=== PATIENT | male | born 1940 | race Caucasian/White ===

== ENCOUNTER 2020-08-03 16:34 | Emergency (ER) | payer MEDICARE, BC ==
--- NOTE | 2020-08-03 17:23 | RAD ---
XR Finger(s) Lt Min 2 View INDICATION: Left index finger injury COMPARISON: None. FINDINGS: Bones: No acute fracture or subluxation is demonstrated. Soft tissues: There is soft tissue swelling of the left index finger. There is a punctate radiodensit y within the pulmonary radial soft tissues of the index finger at the level of distal middle phalanx. 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 IMPRESSION: No acute fracture or subluxation demonstrated. Small punctate radiodensity within the vol ar radial soft tissues of the left index finger may reflect radio dense foreign body.
[2020-08-03] MEDS ORDERED: Lidocaine 1% 20 ML MDV ONE (17:36)
[2020-08-03] MEDS ORDERED: Bacitracin 1 PK ONE (18:02)
== END 2020-08-03 18:28 | disposition home or self-care (01) ==
LOC: MADERS 16:34
DX: S67.191A Crushing injury of left index finger, initial encounter (principal); S61.211A Laceration without foreign body of left index finger without damage to nail, initial encounter; E11.9 Type 2 diabetes mellitus without complications; E03.9 Hypothyroidism, unspecified; E78.5 Hyperlipidemia, unspecified; E78.00 Pure hypercholesterolemia, unspecified; I10 Essential (primary) hypertension; J44.9 Chronic obstructive pulmonary disease, unspecified; F32.9 Major depressive disorder, single episode, unspecified; F17.220 Nicotine dependence, chewing tobacco, uncomplicated; Z79.84 Long term (current) use of oral hypoglycemic drugs; Z79.899 Other long term (current) drug therapy
CPT/HCPCS: 12002